=== PATIENT | female | born 1990 | race African-American/Black ===

== ENCOUNTER 2016-08-07 09:53 | Emergency (ER) | payer OTHER ==
[~2016-08-07] VITALS: Ht 170.2 cm; Wt 108.2 kg
[~2016-08-07 09:53] MED LIST: ASCO500T3 PO; CYAN500T PO; DEXT1CAP8
[2016-08-07 10:10] VITALS: TEMP 36.6; Ht 170.2 cm; Wt 108.2 kg
[2016-08-07] MEDS ORDERED: SODIUM CHLORIDE 0.9% 1000ML 1,000 ML IV STA (11:07)
[2016-08-07 11:29] LABS: BASO % 0.6 %; BASO ABS # 0.03 K/uL (0-0.2); COMPLETE YES; EOS % 2.1 %; HEMATOCRIT 41.7 % (37-47); LYMPH % 36.5 %; LYMPH ABS # 1.94 K/uL (1.2-3.4); MEAN CELL VOLUME 89.1 fL (80-100); MEAN CORPUSCULAR HEMOGLOBIN 30.3 pg (25-34); MEAN CORPUSCULAR HGB CONC 34.1 g/dl (32-36); MEAN PLATELET VOLUME 11.3 fL (7.4-10.4); MONO % 6.2 %; NEUT % 54.6 %; PLATELET COUNT 193 K/uL (130-400); RED BLOOD COUNT 4.68 M/uL (4.2-5.4); WHITE BLOOD COUNT 5.31 K/uL (4.8-10.8)
[2016-08-07 11:46] LABS: BUN/CREATININE RATIO 12.5 (10-20); CALCIUM 9.1 mg/dl (8.5-10.1); CREATININE 0.89 mg/dl (0.60-1.20); MAGNESIUM 2.2 mg/dl (1.8-2.4)
[2016-08-07 11:51] LABS: PREG INTERNAL NEGATIVE QC NEG CLEAR BACKGROUND; PREG INTERNAL POSITIVE QC POS CONTROL LINE
[2016-08-07 11:56] LABS: THYROID STIMULATING HORMONE 2.49 uIu/ml (0.300-4.500)
[2016-08-07 11:59] LABS: URINE APPEARANCE CLEAR (CLEAR); URINE BILIRUBIN NEG (NEG); URINE COLOR DK YELLOW; URINE NITRITE NEG (NEG); URINE SPECIFIC GRAVITY 1.025 (1.000-1.030); UROBILINOGEN NEG (NEG); ZZUR CULT IF INDIC CLEAN CATCH NO
[2016-08-07 12:12] LABS: MANUAL MICROSCOPIC REQUIRED? NO; REVIEW REQ? NO
--- NOTE | 2016-08-07 12:28 | DIAGNOSTIC IMAGING REPORT ---
PA CHEST WITH ABDOMINAL SERIES CLINICAL HISTORY: Left upper quadrant abdominal pain. FINDINGS: A PA chest radiograph is compared to study dated 06/21/2016. The cardiomediastinal silhouette is unremarkable. The lungs and pleural spaces are clear. No pneumothorax is seen. The bony thorax is grossly intact. Supine and erect abdominal radiographs are obtained. No prior studies are available for comparison at the time of dictation. There is a nonobstructed abdominal bowel gas pattern. Mild colonic fecal retention is observed. No intraperitoneal free air is seen. There are no abnormal abdominal calcifications. Small phleboliths are noted in the pelvis. The lumbosacral spine and bony pelvis appear intact. IMPRESSION: 1. No active disease in the chest. 2. Unremarkable abdominal radiographs. Electronically signed by: Mariano Theodore M.D. 08/07/2016 12:26 PM Dictated Date/Time: 08/07/2016 12:25 PM
[2016-08-07 13:14] VITALS: BP 112/78; PULSE 58; O2SAT 98
--- NOTE | 2016-08-07 15:33 | EMERGENCY ROOM VISIT NOTE ---
History Report prepared by Sandrita: Sapphire Flaherty Under the Supervision of: Dr. Mariano Loomis M.D. First contact with patient: 10:59 Chief Complaint: DIZZY Stated Complaint: PAIN IN LEFT SIDE,DIZZINESS,TIRED Nursing Triage Summary: dizzy since last night, hx pre diabetic, bgm 90 this am, pt c/o feeling twitchy. increased thirst, last night bgm 113 History of Present Illness The patient is a 26 year old female who presents to the Emergency Room with complaints of a sudden onset of lightheadedness and dizziness which began after eating dinner at 2230 last evening. Currently, she is in mild discomfort as she is still feeling dizzy, but she states that this sensation is not as severe as it was when it began last evening. At the time of onset, the patient had just gotten home from work and was eating dinner when she suddenly became light headed and dizzy, feeling as if she was "drunk", even though she has not consumed any alcohol for about a year. At that time, she also contracted a headache and states that she also felt as if her muscles were twitching. She also states that she felt very thirsty, so she attempted to drink several glasses of water as she has been drinking a lot of coffee lately, and she was unsure if she may have been dehydrated. Over the past few weeks, patient notes that she has been experiencing intermittent pains to her upper left abdominal quadrant, as well as shooting pains to the left side of her body. These symptoms were also exacerbated last evening as well. The patient notes that she just got insurance and was going to set up an appointment with TRAINING TECHNICIAN as she has noticed an abnormal vaginal discharge, which she thought may be due to a possible yeast infection. She states that she has not had sexual relations for 3 years and denies chance of . Patient does note recent nausea, but she denies fevers, chills, chest pain, shortness of breath, diarrhea or urinary symptoms. Source of History: patient Onset: 2229 last evening Position: head Symptom Intensity: mild Quality: other (dizziness) Timing: other (sudden onset) Associated Symptoms: + abdominal pain, + nausea, No SOB, No chest pain, No chills, No cough, No diarrhea, No fevers, No urinary symptoms, No vomiting Note: Patient notes abnormal vaginal discharge. Review of Systems See HPI for pertinent positives & negatives. A total of 10 systems reviewed and were otherwise negative. Past Medical & Surgical Medical Problems: (1) No significant medical problems Family History Patient reports no known family medical history. Social History Smoking Status: Current Every Day Smoker Marital Status: single Housing Status: lives alone Occupation Status: student Current/Historical Medications No Active Prescriptions or Reported Meds Allergies Coded Allergies: No Known Allergies (Unverified , 08/07/16) Physical Exam Vital Signs Date Time Temp Pulse Resp B/P Pulse Ox O2 Delivery O2 Flow Rate FiO2 08/07/16 13:14 58 18 112/78 98 Room Air 08/07/16 11:37 59 18 110/74 99 Room Air 08/07/16 10:10 36.6 81 18 99 Room Air Physical Exam GENERAL: Patient is in no acute distress. HEENT: No acute trauma, normocephalic atraumatic, mucous membranes moist, no nasal congestion, no scleral icterus. NECK: No stridor, no adenopathy, no meningismus, trachea is midline. LUNGS: Clear to auscultation bilaterally, no wheeze, no rhonchi, breath sounds equal. HEART: Without murmurs gallops or rubs, regular rate and rhythm. ABDOMEN: Soft, nontender, bowel sounds positive, no hernias, no peritonitis. PELVIC: No external vaginal lesions. No discharge. Speculum exam showed no discharge and no cervicitis. EXTREMITIES: No cyanosis or edema, full range of motion of all the joints without pain or difficulty, no signs for acute trauma. NEUROLOGIC: Oriented x 3, no acute motor or sensory deficits, no focal weakness. No cerebellar dysfunction. SKIN: No rash, no jaundice, no diaphoresis. Medical Decision & Procedures ER Provider Diagnostic Interpretation: X-ray results as stated below per interpretation by me and the radiologist: PA CHEST WITH ABDOMINAL SERIES CLINICAL HISTORY: Left upper quadrant abdominal pain. FINDINGS: A PA chest radiograph is compared to study dated 06/21/2016. The cardiomediastinal silhouette is unremarkable. The lungs and pleural spaces are clear. No pneumothorax is seen. The bony thorax is grossly intact. Supine and erect abdominal radiographs are obtained. No prior studies are available for comparison at the time of dictation. There is a nonobstructed abdominal bowel gas pattern. Mild colonic fecal retention is observed. No intraperitoneal free air is seen. There are no abnormal abdominal calcifications. Small phleboliths are noted in the pelvis. The lumbosacral spine and bony pelvis appear intact. IMPRESSION: 1. No active disease in the chest. 2. Unremarkable abdominal radiographs. Electronically signed by: Mariano Theodore M.D. 08/07/2016 12:26 PM Dictated Date/Time: 08/07/2016 12:25 PM Laboratory Results 08/07/16 11:00 Red Blood Count 4.68, Mean Corpuscular Volume 89.1, Mean Corpuscular Hemoglobin 30.3, Mean Corpuscular Hemoglobin Concent 34.1, Mean Platelet Volume 11.3, Neutrophils (%) (Auto) 54.6, Lymphocytes (%) (Auto) 36.5, Monocytes (%) (Auto) 6.2, Eosinophils (%) (Auto) 2.1, Basophils (%) (Auto) 0.6, Neutrophils # (Auto) 2.90, Lymphocytes # (Auto) 1.94, Monocytes # (Auto) 0.33, Eosinophils # (Auto) 0.11, Basophils # (Auto) 0.03 08/07/16 11:00 Test 08/07/16 11:00 08/07/16 11:35 White Blood Count 5.31 K/uL (4.8-10.8) Red Blood Count 4.68 M/uL (4.2-5.4) Hemoglobin 14.2 g/dL (12.0-16.0) Hematocrit 41.7 % (37-47) Mean Corpuscular Volume 89.1 fL (80-100) Mean Corpuscular Hemoglobin 30.3 pg (25-34) Mean Corpuscular Hemoglobin Concent 34.1 g/dl (32-36) Platelet Count 193 K/uL (130-400) Mean Platelet Volume 11.3 fL (7.4-10.4) Neutrophils (%) (Auto) 54.6 % Lymphocytes (%) (Auto) 36.5 % Monocytes (%) (Auto) 6.2 % Eosinophils (%) (Auto) 2.1 % Basophils (%) (Auto) 0.6 % Neutrophils # (Auto) 2.90 K/uL (1.4-6.5) Lymphocytes # (Auto) 1.94 K/uL (1.2-3.4) Monocytes # (Auto) 0.33 K/uL (0.11-0.59) Eosinophils # (Auto) 0.11 K/uL (0-0.5) Basophils # (Auto) 0.03 K/uL (0-0.2) RDW Standard Deviation 40.4 fL (36.4-46.3) RDW Coefficient of Variation 12.6 % (11.5-14.5) Immature Granulocyte % (Auto) 0.0 % Immature Granulocyte # (Auto) 0.00 K/uL (0.00-0.02) Anion Gap 8.0 mmol/L (3-11) Est Creatinine Clear Calc Drug Dose 120.3 ml/min Estimated GFR () 102.9 Estimated GFR (Non- 88.8 BUN/Creatinine Ratio 12.5 (10-20) Calcium Level 9.1 mg/dl (8.5-10.1) Magnesium Level 2.2 mg/dl (1.8-2.4) Total Bilirubin 0.4 mg/dl (0.2-1) Aspartate Amino Transf (AST/SGOT) 18 U/L (15-37) Alanine Aminotransferase (ALT/SGPT) 18 U/L (12-78) Alkaline Phosphatase 52 U/L (45-117) Total Creatine Kinase 202 U/L (26-192) Total Protein 7.7 gm/dl (6.4-8.2) Albumin 3.9 gm/dl (3.4-5.0) Globulin 3.8 gm/dl (2.5-4.0) Albumin/Globulin Ratio 1.0 (0.9-2) Thyroid Stimulating Hormone (TSH) 2.490 uIu/ml (0.300-4.500) Human Chorionic Gonadotropin, Qual NEG (NEG) Urine Color DK YELLOW Urine Appearance CLEAR (CLEAR) Urine pH 5.0 (4.5-7.5) Urine Specific [place] 1.025 (1.000-1.030) Urine Protein NEG (NEG) Urine Glucose (UA) NEG (NEG) Urine Ketones TRACE (NEG) Urine Occult Blood NEG (NEG) Urine Nitrite NEG (NEG) Urine Bilirubin NEG (NEG) Urine Urobilinogen NEG (NEG) Urine Leukocyte Esterase NEG (NEG) Laboratory results reviewed by me. Medications Administered Medications (Trade) Dose Ordered Sig/Nicko Route Start Time Stop Time Status Last Admin Dose Admin Sodium Chloride (Nss 1000ml) 1,000 ml @ 999 mls/hr Q1H1M STAT IV 08/07/16 11:07 08/07/16 12:07 DC 08/07/16 12:10 999 MLS/HR ECG Indication: abdominal pain Rate (beats per minute): 51 Rhythm: sinus bradycardia (with sinus arrhythmia) Findings: no acute ischemic change, no ectopy, other (Diffuse early repolarization) ED Course 1100: The patient was evaluated in room B6. A complete history and physical exam was performed. 1107: NSS bolus IV was ordered. 1252: Upon reevaluation, the patient was doing well and appeared to be resting more comfortably. I updated her on the results of her radiology reports and lab tests. A pelvic exam was also preformed at this time. She tolerated this procedure well. 1300: Discharge instructions were discussed with the patient. She verbalized her understanding and agreement with the treatment plan, and she is now ready for disposition. Medical Decision The patient is a 26 year old female who presents to the ED with complaints of a sudden onset of light headedness and dizziness at 2230 last evening. Differential diagnoses considered include viral illness, food borne illness, UTI , dehydration, electrolyte imbalance, anemia, , and vaginal yeast infection. There is no leukocytosis or concerning anemia. No significant electrolyte abnormality, kidney failure, hepatitis. The patient appears to be in a euthyroid state. Urinalysis suggests some dehydration, no infection. testing is negative. Obstruction series shows no pneumonia, mediastinal widening, free air or bowel obstruction. Vaginal exam revealed no evidence for cervicitis or any infectious process. The patient received IV saline for hydration. She is not toxic, she's not febrile. She has a normal examination. The cause for her complaints is unclear , possibly, she is starting with a viral illness, possibly, she may have been slightly dehydrated. I do think she can be discharged, if worsening, she can return. Outpatient follow-up was suggested. Impression Primary Impression: Dizziness Additional Impression: Intermittent left upper quadrant abdominal pain Scribe Attestation The scribe's documentation has been prepared under my direction and personally reviewed by me in its entirety. I confirm that the note above accurately reflects all work, treatment, procedures, and medical decision making performed by me. Departure Information Dispostion Home / Self-Care Prescriptions No Active Prescriptions or Reported Meds Referrals No Doctor, Assigned (PCP) Forms HOME CARE DOCUMENTATION FORM, IMPORTANT VISIT INFORMATION Patient Instructions My [facility] Additional Instructions try zantac otc 2x per day for 2 weeks cut out the OJ rest fluids lab testing and imaging was all ok return if worsening be sure to set up a [facility] md appt YOU MAY RETURN TO WORK TODAY WHEN YOU LEAVE THE EMERGENCY ROOM Problem Qualifiers
== END 2016-08-07 13:29 | disposition home or self-care (01) ==
LOC: C.EDB 09:54
DX: R42 Dizziness and giddiness (principal); R10.12 Left upper quadrant pain; F17.200 Nicotine dependence, unspecified, uncomplicated

== ENCOUNTER → 2016-09-12 | Outpatient (CLI) | payer OTHER ==
--- NOTE | 2016-09-12 10:43 | DIAGNOSTIC IMAGING REPORT ---
C-SPINE ROUTINE 4 OR 5 VIEWS CLINICAL HISTORY: Cervicalgia. COMPARISON STUDY: No previous studies for comparison. FINDINGS: There is reversal of the normal cervical lordosis. Vertebral body heights are maintained. Facet joints are intact. There is no fracture or osseous lesion. Prevertebral tissues are normal. IMPRESSION: 1. Reversal of normal lordosis which may be due to spasm. 2. Otherwise, unremarkable cervical spine radiographs. Electronically signed by: Sunday Sales M.D. 09/12/2016 10:42 AM Dictated Date/Time: 09/12/2016 10:35 AM
== END | disposition home or self-care (01) ==
LOC: C.RAD 10:05
PROVIDERS: ATTEND Nurse Practitioner
DX: M54.2 Cervicalgia (principal); M51.9 Unspecified thoracic, thoracolumbar and lumbosacral intervertebral disc disorder; M53.82 Other specified dorsopathies, cervical region

== ENCOUNTER 2017-09-04 12:46 | Emergency (ER) | payer OTHER ==
[~2017-09-04] VITALS: Ht 170.2 cm; Wt 117.8 kg
[2017-09-04 12:56] VITALS: Ht 170.2 cm; Wt 117.8 kg
[2017-09-04] MEDS ORDERED: MISCCAP80 PO (13:25)
[2017-09-04] MEDS ORDERED: MULT-506 PO (13:25)
[2017-09-04] MEDS ORDERED: OMEG10007 PO (13:25)
[2017-09-04] MEDS ORDERED: ACETAMINOPHEN 500 MG TAB PO STA (13:36)
[2017-09-04] MEDS ORDERED: COUGH DROP (SUGAR FREE) LOZ 24 LOZ/1 BOX LOZ STA (13:36)
[2017-09-04] MEDS ORDERED: IBUPROFEN 600 MG TAB PO STA (13:36)
--- NOTE | 2017-09-04 13:40 | EMERGENCY ROOM VISIT NOTE ---
History Report prepared by Sandrita: Homero Hobson Under the Supervision of: Dr. Jesus Garcia M.D. First contact with patient: 13:06 Chief Complaint: FLU LIKE SX Stated Complaint: FLU LIKE SX,FOGGY HEAD History of Present Illness The patient is a 27 year old black female with a past medical history of GERD who presents to the ED with a cc of persistent flu like symptoms beginning last night. Positive cough, weakness, phlegm in her throat, pain under her breast into her back, sore throat, some leg pain, and having a "foggy moment while reading". Negative history of blood clots, history of seizures, and history of stroke. She is a smoker, and her roommate around her is sick. She does not drink alcohol. Her LNMP was August 21. The patient took zinc and vitamin C this morning, and she did not get her flu shot this year. Source of History: patient Onset: last night Position: other (global) Quality: other (flu like symptoms) Timing: other (persistent) Associated Symptoms: + sorethroat, + cough, + weakness Note: Associated symptoms: Phlegm in her throat, pain under her breast into her back, leg pain, and a "foggy moment while reading" Review of Systems See HPI for pertinent positives and negatives. A total of ten systems were reviewed and were otherwise negative. Past Medical & Surgical Medical Problems: (1) GERD (gastroesophageal reflux disease) (2) No significant medical problems Family History Patient reports no known family medical history. Social History Smoking Status: Current Every Day Smoker Marital Status: single Housing Status: lives alone Occupation Status: student Current/Historical Medications Scheduled Fish Oil ([place]-3), 1 CAP PO DAILY Multivitamin (Multivitamin), 1 TAB PO DAILY Probiotic Product (Probiotic), 1 CAP PO DAILY Allergies Coded Allergies: Dairy (Unverified Allergy, Unknown, see comments, 09/04/17) pt said uncle was allergic and it got worse over time so she was told she most likly has the allergy. Maple Flavor (Unverified Allergy, Unknown, see comments, 09/04/17) pt said uncle was allergic and it got worse over time so she was told she most likly has the allergy. Peanut (Unverified Allergy, Unknown, see comments, 09/04/17) pt said uncle was allergic and it got worse over time so she was told she most likly has the allergy. Physical Exam Vital Signs Date Time Temp Pulse Resp B/P (MAP) Pulse Ox O2 Delivery O2 Flow Rate FiO2 09/04/17 15:52 36.7 55 18 115/63 99 09/04/17 15:36 55 18 115/63 99 Room Air 09/04/17 14:10 60 16 131/69 100 Room Air 09/04/17 12:56 36.7 66 18 118/78 100 Room Air Physical Exam GENERAL: Awake, alert, well-appearing, NAD HENT: Normocephalic, atraumatic. Posterior oropharynx is clear EYES: Normal conjunctiva. Sclera non-icteric. NECK: Supple. No nuchal rigidity. FROM. No stridor RESPIRATORY: CTAB, no rhonchi, wheezing, crackles CARDIAC: RRR, no MRG ABDOMEN: Soft, NTND, BS+ MSK: No chest wall TTP, no LE edema, no calf pain NEURO: CN 2-12 intact, 5/5 upper and lower extremity strength, no dysmetria, no drift, good finger to nose, no sensory deficits. SKIN: No rash or jaundice noted. Medical Decision & Procedures Laboratory Results Test 09/04/17 14:10 Influenza Type A Antigen Neg for Influ A (NEG) Influenza Type B Antigen Neg for Influ B (NEG) Medications Administered Medications (Trade) Dose Ordered Sig/Nicko Route Start Time Stop Time Status Last Admin Dose Admin Ibuprofen (Motrin Tab) 600 mg NOW STAT PO 09/04/17 13:36 09/04/17 13:37 DC 09/04/17 14:08 600 MG Acetaminophen (Tylenol Tab) 1,000 mg NOW STAT PO 09/04/17 13:36 09/04/17 13:38 DC 09/04/17 14:09 1,000 MG Menthol (Nice Mir) 1 mir NOW STAT MIR 09/04/17 13:36 09/04/17 13:38 DC 09/04/17 14:09 24 MIR Benzonatate (Tessalon Perles Cap) 100 mg NOW ONCE PO 09/04/17 13:45 09/04/17 13:47 DC 09/04/17 14:08 100 MG ED Course 1320: The patient was evaluated in room C8. A complete history and physical exam was performed. Medical Decision The patient is a 27 year old black female with a past medical history of GERD who presents to the ED with a cc of persistent flu like symptoms beginning last night. Differential diagnosis: Etiologies such as viral syndrome, otitis, pharyngitis, pneumonia, influenza, meningitis, urinary tract infection, sepsis, bacteremia, as well as others were entertained. Patient was seen and evaluated the bedside. Patient has complained of some flulike symptoms. Patient did notice a period of which she described as fogginess last evening. Young healthy. Less likely TIA/CVA. Non-focal neuro exam. No meningismus. Don't believe LP needed at this time. Patient does smoke tobacco. Patient was counseled on smoking cessation. Patient otherwise has been feeling well albeit distal a run down. Patient has had a dry cough. Chest x-ray was negative. Patient had a flu that was negative. Patient was given medications for symptom control. Upon reassessment the patient was feeding sleeping comfortably. Patient vital signs stable. The patient is suitable for outpatient follow-up and discharge. Patient was given strict follow-up, discharge, and return precautions. All questions were answered. Patient was deemed suitable for outpatient follow-up at this time. Patient agreed with the plan of care and was safely discharged home. Impression Primary Impression: Influenza-like symptoms Additional Impression: Encounter for smoking cessation counseling Scribe Attestation The scribe's documentation has been prepared under my direction and personally reviewed by me in its entirety. I confirm that the note above accurately reflects all work, treatment, procedures, and medical decision making performed by me. Departure Information Dispostion Home / Self-Care Referrals No Doctor, Assigned (PCP) Patient Instructions Coughing Techniques, My [facility], Sore Throats Self Care Additional Instructions Please return to the emergency department if you have worsening or recurrent symptoms not amenable to at-home treatment. Please call for a follow-up appointment with her primary care physician. Please take your medications as prescribed. If you have other concerns and/or complaints please feel free to also call your primary care physician's office or return the ED for further evaluation, management, and treatment. You may take 600 mg Ibuprofen every 6 hours as needed for pain with food for no more than 2 consecutive days. You may take tylenol 1000 mg every 6 hours as needed for pain. You may take motrin and tylenol separately or at the same time. You may try Tessalon Perles or Cepacol for sore throat and cough suppressant. You may try Mucinex as an expectorant to help with chest congestion. Take your medications as prescribed. You have been examined and treated today on an emergency basis only. This is not a substitute for, or an effort to provide, complete comprehensive medical care. It is impossible to recognize and treat all injuries or illnesses in a single emergency department visit. It is therefore important that you follow up closely with [facility], your PCP, and/or your specialist(s). Call as soon as possible for an appointment. Thank you for your time and consideration. I look forward to speaking with you again soon. Please don't hesitate to call us if you have any questions. Problem Qualifiers
[2017-09-04] MEDS ORDERED: BENZONATATE 100MG CAP PO ONE (13:45)
--- NOTE | 2017-09-04 13:49 | DIAGNOSTIC IMAGING REPORT ---
CHEST ONE VIEW PORTABLE HISTORY: cough, flu like symptoms COMPARISON: Chest 08/07/2016. FINDINGS: The lungs are clear. Cardiac silhouette is normal in size. No pleural effusions. No pneumothorax. IMPRESSION: No acute process. Electronically signed by: Jony Mcfarlane M.D. 09/04/2017 1:48 PM Dictated Date/Time: 09/04/2017 1:47 PM
[2017-09-04 14:56] LABS: INFLUENZA B ANTIGEN Neg for Influ B (NEG)
[2017-09-04 15:52] VITALS: BP 115/63; PULSE 55; TEMP 36.7; O2SAT 99
== END 2017-09-04 15:52 | disposition home or self-care (01) ==
LOC: C.EDB 12:47 → C.EDC 15:52
DX: R05 Cough (principal); R53.83 Other fatigue; J02.9 Acute pharyngitis, unspecified; M79.606 Pain in leg, unspecified; Z71.6 Tobacco abuse counseling; K21.9 Gastro-esophageal reflux disease without esophagitis; F17.210 Nicotine dependence, cigarettes, uncomplicated; Z79.899 Other long term (current) drug therapy; Z91.011 Allergy to milk products; Z91.010 Allergy to peanuts; Z91.018 Allergy to other foods

== ENCOUNTER 2017-11-23 12:46 | Emergency (ER) | payer OTHER ==
[~2017-11-23] VITALS: Ht 172.7 cm; Wt 115.0 kg
[~2017-11-23 12:46] MED LIST changes: -ASCO500T3 PO; -CYAN500T PO; -DEXT1CAP8; +MISCCAP80 PO; +MULT-506 PO; +OMEG10007 PO
[2017-11-23 12:51] VITALS: BP 131/82; PULSE 52; TEMP 36.7; O2SAT 98; Ht 172.7 cm; Wt 115.0 kg
[2017-11-23] MEDS ORDERED: CEPH500C2 PO (13:38)
[2017-11-23] MEDS ORDERED: SULF800T23 PO (13:38)
--- NOTE | 2017-11-23 19:27 | EMERGENCY ROOM VISIT NOTE ---
ED Visit Note First contact with patient: 13:00 Chief Complaint: I have an infection on my right thigh. History of Present Illness: Ms. Roberts is a 27-year-old black female who ambulates into the ED complaining of a skin infection on the upper thigh on the right. Patient reports she went camping a few weeks ago and when she got home she noted small pimple-like lesions on the anterior and medial aspect of the right upper leg. She reports that yesterday she broke open 1 of these small pimple- like lesions and today she developed skin redness and pain. Currently she describes her pain in the anterior proximal and medial aspect of the thigh as a mild burning sensation. She rates her discomfort 3/10. Her pain is nonradiating. Her pain slightly worsens with palpation and when close rub up against her skin. She has not identified any alleviating factors related to the pain. She has not taken any medications for pain although she does report she has been cleaning it with soap and water and slightly squeezing the area and receives a small amount of blood and yellowish puslike drainage. Associated with this lesion she reports that she has been slightly fatigued but is not sure if this is related to increased school work required to graduate. Additionally patient reports she has seasonal allergies and over the last couple of days she has developed a mild bilateral frontal headache with nasal congestion and mild nasal drainage. She describes this discomfort as a pressure sensation. She rates this discomfort 2/10. Her pain is nonradiating. She has not identified any aggravating or alleviating factors related to this discomfort. She has not taken any medications for this discomfort prior to arrival at the hospital. Patient denies fevers, chills, sweats, other skin eruptions, other skin color changes, dizziness, lightheadedness, upper respiratory tract symptoms, wheezing , shortness of breath, palpitations, previous clots, claudication, cramping, chest pain, abdominal pain, decreased appetite, nausea/vomiting. Review of Systems: As noted above in history of present illness. 8 body systems were reviewed and found to be negative as noted above. Past Medical History: Seasonal allergies. Current Medications: Patient denies. Allergies to Medications: Peanut, dairy. Social History: Patient is currently in college and is employed; she feels safe in her home environment; she admits to tobacco and alcohol use. Physical Examination: Vital Signs: Date Time Temp Pulse Resp B/P (MAP) Pulse Ox O2 Delivery O2 Flow Rate FiO2 11/23/17 12:51 36.7 52 16 131/82 98 Room Air GENERAL: 27-year-old female in mild distress due to pain, nontoxic-appearing, afebrile and hemodynamically stable. NEUROLOGICAL: Awake, alert and oriented to person, place and time. Answering questions appropriately and following commands. Normal gait. Good hand eye coordination. No focal motor sensory deficits. SKIN: Warm, dry and pink. HEENT: Atraumatic and normocephalic. No erythema or tenderness over the frontal or maxillary sinuses. PERRLA. Sclera white and conjunctiva pink. No drainage from naris but audible congestion. Oral cavity moist and pink. Pharynx is nonerythematous or edematous. Speech normal. No lymphadenopathy. THORAX: Lungs sounds are clear to auscultation and equal bilaterally with symmetrical chest wall. No wheezing, rales or rhonchi. ABDOMEN: Obese, soft and nontender. Positive bowel sounds in all quadrants. No guarding, rigidity or organomegaly. RIGHT LOWER EXTREMITY: No gross bony deformity. No shortening or malrotation. No tenderness over the hip, knee, ankle or foot. Over the anterior medial aspect of the proximal thigh patient has a oval shaped 6-7 cm area of erythema with no lymphangitis. In the central portion of this erythema is a roundish excoriated what appears to be a small superficial abscess. The area is indurated but not fluctuant. The area surrounding the primary lesion has an early cellulitic look to the skin and is warm to touch but not hot. There is no pointing and currently there is no active drainage. No local lymphadenopathy. Full range of motion of the hip and knee. ED Course: Patient is assessed as noted above. Patient's medication list was reviewed. Patient was educated about today's findings and instructed on her treatment plan ; she verbalized understanding and agreement with this plan. Clinical Impression: Left thigh cellulitis/possible early abscess. Sinus headache. Disposition: Patient discharged home in stable condition; prior to departure she was reassessed and subjectively reported she was now pain and symptom-free. Plan: Patient was prescribed Keflex and Bactrim and instructed on their use. Patient was encouraged use the counter pain medications as needed. Patient was encouraged to use pseudoephedrine as needed for congestion. Patient was encouraged to clean the cellulitic area which is soap and water and to use a small amount of topical antibiotic ointment and cover with a bandage and avoid constricting pants around the area. Patient was encouraged to follow-up in the ED for recheck in 36 hours or sooner for any signs of worsening infection or any new/concerning symptoms.
== END 2017-11-23 13:45 | disposition home or self-care (01) ==
LOC: C.EDB 12:47 → C.EDD 13:45
DX: L03.116 Cellulitis of left lower limb (principal); G44.89 Other headache syndrome; R09.81 Nasal congestion; Z72.0 Tobacco use

== ENCOUNTER 2017-11-27 12:21 | Emergency (ER) | payer OTHER ==
[~2017-11-27] VITALS: Ht 170.2 cm; Wt 113.4 kg
[~2017-11-27 12:21] MED LIST changes: +CEPH500C2 PO; -MISCCAP80 PO; -MULT-506 PO; -OMEG10007 PO; +SULF800T23 PO
[2017-11-27 12:24] VITALS: TEMP 36.8; Ht 170.2 cm; Wt 113.4 kg
--- NOTE | 2017-11-27 13:19 | EMERGENCY ROOM VISIT NOTE ---
History First contact with patient: 12:32 Chief Complaint: WOUND RECHECK Stated Complaint: RECHECK INFECTION ON LEG Nursing Triage Summary: pt reports she has been seen here for infection to right upper thigh area told to have rechecked not able to get to pcp returning here for recheck History of Present Illness The patient is a 27 year old female who presents to the Emergency Room via private vehicle with complaints of "recheck infection on leg". The patient states that she was seen here a few days ago for an infection of the right upper thigh. She was given Keflex and Bactrim has been taking these as prescribed. She notes that the area has been improving, there is very minimal redness now and the swelling has decreased somewhat. She notes that there is persistence of a small pea-sized bump in the right anterior thigh. She denies any vomiting, nausea, fevers or chills. Tetanus is not up-to-date. Review of Systems A complete 6-point Review of Systems was discussed with the patient, with pertinent positives and negatives listed in the History of Present Illness. All remaining Review of Systems questions can be considered negative unless otherwise specified. Past Medical/Surgical History Medical Problems: (1) GERD (gastroesophageal reflux disease) (2) No significant medical problems Family History Patient reports no known family medical history. Social History Smoking Status: Current Some Day Smoker Marital Status: single Housing Status: lives alone Occupation Status: student Current/Historical Medications Scheduled Cephalexin Monohydrate (Keflex), 500 MG PO QID Sulfa/Trimethoprim (Bactrim Ds 800MG/160MG), 1 TAB PO BID Physical Exam Vital Signs Date Time Temp Pulse Resp B/P (MAP) Pulse Ox O2 Delivery O2 Flow Rate FiO2 11/27/17 13:46 62 18 108/77 98 11/27/17 12:24 36.8 62 18 108/77 98 Room Air Physical Exam VITAL SIGNS - Vital signs and nursing notes were reviewed. Stable. Afebrile. GENERAL -27-year-old female appearing her stated age who is in no acute distress. Communicates well with provider and answers questions appropriately. SKIN -there is evidence of skin marking pen outlining a no longer erythematous region of the right anterior thigh. There is a small 3 cm x 2 cm oval nonraised region which is slightly indurated but nonfluctuant. There is some skin peeling in this region. No drainage. EXTREMITIES - No clubbing or peripheral cyanosis. No pretibial edema present. Right thigh skin changes as noted above. Otherwise unremarkable. Medical Decision & Procedures Medications Administered Medications (Trade) Dose Ordered Sig/Nicko Route Start Time Stop Time Status Last Admin Dose Admin Diphtheria/ Pertussis/Tetanus Vacc (Adacel Inj) 0.5 ml ONCE ONCE IM. 11/27/17 13:30 11/27/17 13:31 DC 11/27/17 13:39 0.5 ML Medical Decision Patient was seen and evaluated as above in room D7. Review was performed of nursing notes and vital signs. After obtaining a thorough history and physical examination the above work up was performed. She presents to us today for wound recheck of the right anterior thigh. She has been compliant with her medications. The wound appears to be improving both from a subjective standpoint, as well as comparing this to what was seen in the physical examination on her previous visit. She is to continue the antibiotics and follow with the family doctor or return with worsening. The patient was educated upon management, had questions answered prior to discharge, and was discharged home in good condition. She notes that her tetanus is not up-to-date and because there is questionable break in the integument that may have caused this she was given an Adacel injection. In the evaluation and treatment of this patient the following differential diagnoses were entertained: Improving cellulitis, abscess, sepsis, among others. Impression Primary Impression: Encounter for wound re-check Departure Information Dispostion Home / Self-Care Condition GOOD Referrals No Doctor, Assigned (PCP) Patient Instructions My [facility] Additional Instructions You were seen in the emergency department for a wound recheck. The wound looks good at time. Please continue to monitor and watch this area for any increased redness, swelling, nausea, vomiting or fevers. If this would occur please return. As we discussed if you are able to follow with the family doctor in a week or so to follow-up it may be reasonable but again please return if worse. Please continue the medications previously prescribed.
[2017-11-27] MEDS ORDERED: DIPHTHERIA/TETANUS/PERTUSSIS 0.5 ML SYR/VIAL IM. ONE (13:30)
[2017-11-27 13:46] VITALS: BP 108/77; PULSE 62; O2SAT 98
== END 2017-11-27 13:46 | disposition home or self-care (01) ==
LOC: C.EDB 12:21 → C.EDD 13:46
DX: Z09 Encounter for follow-up examination after completed treatment for conditions other than malignant neoplasm (principal); Z79.2 Long term (current) use of antibiotics; F17.210 Nicotine dependence, cigarettes, uncomplicated

== ENCOUNTER → 2018-02-11 | Outpatient (CLI) | payer OTHER ==
[~2018-02-11] MED LIST changes: -CEPH500C2 PO; +CYCL10TA6 PO; -SULF800T23 PO
== END | disposition home or self-care (01) ==
LOC: C.PAPS 15:08
PROVIDERS: ATTEND Obstetrics & Gynecology
DX: Z01.419 Encounter for gynecological examination (general) (routine) without abnormal findings (principal)